=== PATIENT | male | born 1970 | race Two or more races ===

== ENCOUNTER 2017-01-28 23:45 | Emergency (ER) | payer OTHER ==
[2017-01-29] MEDS ORDERED: LORAZEPAM 1 MG TABLET ONE (00:09)
== END 2017-01-29 00:22 | disposition home or self-care (01) ==
LOC: ED 23:45
DX: H93.12 Tinnitus, left ear (principal); H93.232 Hyperacusis, left ear; R03.0 Elevated blood-pressure reading, without diagnosis of hypertension
CPT/HCPCS: 99282; 99283; A9270

== ENCOUNTER 2017-02-05 22:29 | Emergency (ER) | payer OTHER ==
[2017-02-05] MEDS ORDERED: IOPAMIDOL 370 (76%) 100 ML VIAL IV ONE (22:30)
[2017-02-06 00:37] LABS: URINE BILIRUBIN NEGATIVE (NEGATIVE); URINE BLOOD 2+ (NEGATIVE); URINE GLUCOSE (UA) NEGATIVE (NEGATIVE); URINE LEUKOCYTE ESTERASE NEGATIVE (NEGATIVE); URINE NITRITE NEGATIVE (NEGATIVE); URINE PROTEIN TRACE (NEGATIVE); URINE UROBILINOGEN NORMAL (0-1 mg/dl)
[2017-02-06 00:40] LABS: ABSOLUTE NEUTROPHIL COUNT 4.7 K/mm3 (1.8-7.7); BASO % 0.3 % (0.2-1.0); EOS # 0.3 (0.0-0.5); EOS % 2.8 % (0.9-2.9); HEMATOCRIT 48.3 % (32.0-52.0); HEMOGLOBIN 16.6 gm/l (14.0-18.0); IMM NEUT% 0.2 % (0-1); LYMPH # 3.9 (1.0-4.8); LYMPH % 40.6 % (15-45); MEAN CELL VOLUME 84.4 fl (80.0-94.0); MEAN CORPUSCULAR HGB CONC 34.4 g/dl (33.0-37.0); MEAN PLATELET VOLUME 10.2 fl (7.4-10.4); MONO # 0.7 (0.0-0.8); MONO % 7.5 % (4-12); NEUT % 48.6 % (43-75); PLATELET COUNT 234 K/mm3 (130-400); RED CELL DISTRIBUTION WIDTH 12.2 % (11.5-14.5)
[2017-02-06 00:45] LABS: URINE APPEARANCE CLEAR; URINE COLOR YELLOW
[2017-02-06 00:46] LABS: URINE EPITHELIAL CELLS FEW /hpf; URINE WBC NEG /hpf
[2017-02-06 00:47] LABS: URINE BACTERIA 0
[2017-02-06 01:01] LABS: I-STAT CREATININE 0.7 mg/dL (0.6-1.3)
--- NOTE | 2017-02-06 08:37 | CT ---
ABD/PELVIS W/ CON COMPARISON: None. HISTORY: 46-year-old male. One day of lower abdominal and rectal pain. Technique: No oral contrast. Intravenous injection 100 mL Isovue 370. [facility] [address] [facility], images were obtained from the diaphragm to the floor the pelvis. An automated dose reduction technique was used to minimize patient radiation dose. Dose information: CTDIvol (mGy): 22.60 DLP(mGycm): 1196.60 FINDINGS: Lung bases: Normal. Inferior mediastinum and heart: Normal. Liver: Normal. Gallbladder: Cholecystectomy. Bile ducts: Normal. Pancreas: Normal. Spleen: Normal. Adrenal glands: Normal. Kidneys: Normal. Ureters: Normal Urinary bladder: Normal. Prostate gland and seminal vesicles: Normal. Blood vessels: Normal Lymph nodes: Normal Stomach: Normal Duodenum: Normal Small intestine: Normal Appendix: Appendectomy. Colon: Normal Abdominal wall and supporting musculature: Mild left inguinal hernia containing fat. Bones: Normal IMPRESSION: 1. No acute finding. Status post cholecystectomy and appendectomy. 2. Relatively low attenuation/enhancement of liver, suspicious for fatty infiltration. 3. Mild left renal hernia containing fat only. Preliminary report by [facility] radiologist Barrett Loja M.D. 02/06/2017 at 01:33
[2017-02-06 13:25] LABS: ALB/GLOB RATIO 1.8 (>1.0); ALBUMIN 4.6 gm/dL (3.5-5.7); CALCIUM 9.4 mg/dL (8.6-10.3)
== END 2017-02-06 01:54 | disposition home or self-care (01) ==
LOC: ED 22:29
DX: K64.9 Unspecified hemorrhoids (principal); R10.30 Lower abdominal pain, unspecified; Z87.11 Personal history of peptic ulcer disease
CPT/HCPCS: 83690; 85025; 80053; 81001; 74177; 99284 ×2; Q9967